=== PATIENT | male | born 1945 | race Caucasian/White ===

== ENCOUNTER 2023-05-14 08:55 | Outpatient (CLI) | payer OTHER | END 2023-05-14 08:56 | disposition home or self-care (01) | LOC: MRI 08:55 | PROVIDERS: ATTEND Otolaryngology Plastic Surgery within the Head & Neck | DX: H90.A22 Sensorineural hearing loss, unilateral, left ear, with restricted hearing on the contralateral side (principal) | CPT/HCPCS: 70553 ==